=== PATIENT | female | born 1980 | race Caucasian/White ===

== ENCOUNTER 2018-03-24 22:00 | Emergency (ER) | payer MEDICAID, SELFPAY ==
[2018-03-24 22:01] VITALS: BP 147/92; PULSE 87; RESP 15; TEMP 36.9; O2SAT 96; BMI 40.1
[2018-03-24 22:15] VITALS: O2SAT 97
[2018-03-24] MEDS: predniSONE 20 MG Tablet 40 MG PO (22:21)
[2018-03-24 22:23] VITALS: BP 161/99; PULSE 85; O2SAT 96
--- NOTE | 2018-03-24 22:32 | RAD_ITS ---
STUDY: X-RAY CHEST REASON FOR EXAM: Female, 37 years old. Cough and congestion. TECHNIQUE: PA and lateral views of the chest. COMPARISON: None. FINDINGS: The lungs are clear and expanded. There is no demonstrated pleural abnormality. Normal size heart. Normal mediastinum and stewart. Normal visualized pulmonary arteries. Normal visualized aortic arch and descending thoracic aorta. Normal visualized thoracic spine. Normal visualized ribs, clavicles, and shoulders. There is no demonstrated abnormality of the visualized soft tissue structures of the upper abdomen. RAD/Chest PA and Lateral IMPRESSION: No evidence of acute cardiopulmonary process. Electronically Signed: Aman Bhatti DO at 22:42 EDT , Service support ,
--- NOTE | 2018-03-24 22:52 | ED.VISSUMM ---
- ER Visit Summary Date of Service: 03/24/18 Chief Complaint: [Cough] History of Present Illness: The patient is a 37 F [presents the emergency department with a cough that started 1 week ago. Patient states the cough is nonproductive. Patient feels somewhat short of breath. She has had no fever. Patient was seen 2 days ago at [place] emergency department and started on Zithromax, Tessalon, and albuterol inhaler. Patient states that she has a coworker that is been diagnosed with influenza recently. Patient also states that she is lost her voice but denies any sore throat. She does describe a mild headache. She denies any body aches. HEENT-PERRLA, EOMI. Cranial nerves II through XII grossly intact. Physical Examination: [HEENT-PERRLA, EOMI. Cranial nerves II through XII grossly intact. TMs clear. Mucous membranes moist. No adenopathy. Cardiovascular-regular rate and rhythm without murmur or ectopy Lungs-good aeration bilaterally. Respiratory wheezes bilaterally. No significant tachypnea. No accessory muscle use or retractions. Abdomen-normoactive bowel sounds, soft, nontender, no rebound or rigidity, no peritoneal signs. Extremities-intact ?4, normal range of motion, normal pulses, atraumatic] Test Results: [Chest x-ray obtained was normal] Emergency Department Course and Treatment: [Was given a DuoNeb aerosol and started on prednisone.] Treatment Plan: [I suspect patient's illness likely viral she is to continue with her current medications and I will add prednisone. Patient instructed to use her albuterol every 4 hours as needed for wheezing.] Patient advised to quit smoking. Disposition: [Discharged to home in stable condition. Patient advised to return if increased dyspnea or condition should worsen in any way.] Impression: [Asthmatic bronchitis] This note was generated with [employer] dictation software. It may contain incorrect words, spelling, and punctuation that were not noted in review of the chart prior to signing ED Disposition - Plan for ED Patient: Chief Complaint: Cough Referrals: [facility] Doctor,Out of [Primary Care Provider] -
--- NOTE | 2018-03-24 22:55 | ED.DEP ---
ED Disposition - Plan for ED Patient: Chief Complaint: Cough Instructions: ED Bronchitis Asthmatic Prescriptions: Prednisone [Deltasone] 20 mg PO BID #10 tab Referrals: [facility],Out of [Primary Care Provider] - 5-7 Days
[2018-03-24 23:25] VITALS: PULSE 86; RESP 18
[2018-03-24] MEDS: Ipratropium/Albuterol Sulfate 3 ML AMPUL.NEB INHALATION (23:25)
[2018-03-24 23:34] VITALS: PULSE 78; O2SAT 97
== END 2018-03-24 23:36 | disposition home or self-care (01) ==
LOC: ED 22:36
PROVIDERS: Emergency Provider Emergency Medicine
DX: J45.909 Unspecified asthma, uncomplicated (principal); Z72.0 Tobacco use; Z79.2 Long term (current) use of antibiotics; Z79.51 Long term (current) use of inhaled steroids
CPT/HCPCS: 71046; 94640; 99282

== ENCOUNTER 2022-01-02 00:38 | Emergency (ER) | payer MEDICAID, SELFPAY ==
[2022-01-02 00:39] VITALS: BP 189/98; PULSE 82; RESP 18; TEMP 36.6; O2SAT 98; BMI 43.8
--- NOTE | 2022-01-02 00:57 | ED.VIS.DENTA ---
HPI History of Present Illness Chief Complaint: Dental Informant: patient Onset/Context/Timing Onset: Weeks (1) Context: Gradual Onset Timing: Continuous Quality: Sharp, aching Location: Left lower molar Worsened by: Nothing Relieved by: - (Nothing) Associated Symptoms Assocated Symptom - Dental: cold sensitivity and hot sensitivity; Negative for fever, jaw swelling or face swelling Narrative Narrative: Patient presents with left lower dental pain that has been getting worse over the past week. Patient states that she broke a piece off of her left lower molar 1 week ago. Patient states the pain has been tolerable until tonight. Patient describes her pain as sharp and aching. Patient states the pain is over the left lower molar area. Patient states nothing makes it worse and nothing makes it better. Patient does admit to hot and cold sensitivity. Patient denies any fevers or chills. Patient denies any jaw or facial swelling. PFSH PFSH Medical History no medical history Home Medications penicillin V potassium 500 mg PO 4X/DAY #40 tab 01/02/22 [Rx Last Taken Unknown] Allergy/AdvReac Type Severity Reaction Status Date / Time aspirin Allergy Hives Verified 01/02/22 00:41 Social History Smoking Status: Current every day smoker tobacco type: cigarettes ROS ROS ED Constitutional Constitutional ED: Denies chills or fever(s) Eyes Eyes: Denies blurry vision or change in vision ENT ENT ED: Denies rhinorrhea or sore throat Cardiovascular Cardiovascular: Denies chest pain or palpitations Respiratory/Chest Respiratory/Chest: Denies cough or dyspnea Gastrointestinal Gastrointestinal: Denies nausea or vomiting Genitourinary Genitourinary ED: Denies dysuria or hematuria Musculoskeletal Musculoskeletal: Reports neck pain; Denies back pain Integumentary Denies abscess or rash Neurologic Neurologic: Denies headache(s) or weakness Allergic/Immunologic Allergic/Immunologic ED: Denies mouth swelling or urticaria EXAM Physical Exam Const Vital Signs: 01/02/22 00:39 Temperature 97.9 F Temperature Source Temporal Pulse Rate 82 Respiratory Rate 18 Blood Pressure 189/98 H Blood Pressure Mean 128 Pulse Ox 98 Oxygen Delivery Method Room Air Positive well nourished, well developed and obese General Appearance ED: well developed and NAD Nutritional Appearance: obese HEENT HEENT Narrative: There is a dental fracture of the left lower third molar. There is mild gingival edema around this tooth. There is no fluctuance or evidence of any abscess. There is no discharge or drainage. There is no sublingual edema or erythema. There is no evidence of Victorino's angina. Oropharynx is clear. Airway is patent. Mouth ED: Yes lips normal and Yes tongue normal Mouth: lips normal and tongue normal Teeth and Gingiva: caries Throat: posterior oropharynx normal Neck supple and no JVD General: anterior neck swelling and submandibular swelling Neuro oriented x3, CN's II-XII intact bilaterally, moves all extremities, no focal motor deficits and no sensory deficits noted Sensorium / Orientation: alert Psych mental status grossly normal MDM MDM MDM Narrative Medical decision making narrative: Patient was given a dose of Pen-Vee K here. Patient was given a prescription for Pen-Vee K. Patient was instructed to follow-up with her dentist in 3 to 5 days. Patient understood and was agreeable with the plan. All questions were answered. Discharge Plan Triage Chief Complaint: Dental ED Provider: Srinivas Cristobal Dx/Rx/DC Orders Clinical Impression: Dental caries Instructions: ED Dental Pain Prescriptions: New penicillin V potassium 500 MG tablet 500 mg PO 4X/DAY Qty: 40 RF: 0 Primary Care Provider: Mamadou Chaves Referrals: Mamadou Chaves DO [Primary Care Provider] - 3-5 Days Dentist,Your [STAFF PHYSICIAN] - 3-5 Days Disposition Disposition: Home, Self Care
[2022-01-02] MEDS: Penicillin Vk 250 MG Tablet 500 MG PO (01:11)
== END 2022-01-02 01:14 | disposition home or self-care (01) ==
LOC: ED 01:09
PROVIDERS: Emergency Provider Emergency Medicine; PCP Student in an Organized Health Care Education/Training Program; Visit Provider Emergency Medicine
DX: K02.9 Dental caries, unspecified (principal); F17.210 Nicotine dependence, cigarettes, uncomplicated; S02.5XXA Fracture of tooth (traumatic), initial encounter for closed fracture; X58.XXXA Exposure to other specified factors, initial encounter
CPT/HCPCS: 99283

== ENCOUNTER 2022-11-14 18:47 | Emergency (ER) | payer MEDICAID, SELFPAY ==
[2022-11-14 18:48] VITALS: BP 173/98; PULSE 104; RESP 18; TEMP 36.4; O2SAT 99; BMI 41.1
--- NOTE | 2022-11-14 20:04 | EX.ED.DYSGE1 ---
HPI History of Present Illness Chief Complaint: Lower Extremity Injury Narrative Narrative: Patient presents with 1 week of left ankle pain it hurts when she stands up at work she does not know any obvious injury. Since then she has developed some pain in her left quadricep also. This is also nontraumatic. She has no lower extremity edema calf pain or inner thigh pain. No chest pain or shortness of breath. [facility] Medical History (Updated 11/14/22 @ 20:[address] Bakari Nelson MD) Leg pain Home Medications penicillin V potassium 500 mg tablet 500 mg PO 4X/DAY #40 tabs 01/02/22 [Rx Last Taken Unknown] naproxen 500 mg tablet (Naprosyn) 500 mg PO BID #20 tabs 11/14/22 [Rx Last Taken Unknown] Allergy/AdvReac Type Severity Reaction Status Date / Time aspirin Allergy Hives Verified 11/14/22 18:50 Social History Smoking Status: Current every day smoker tobacco type: cigarettes ROS ROS ED ROS Narrative Past medical history: none Medications: Reviewed Social history: Noncontributory Review of systems: Musculoskeletal: As in HPI Skin: No abrasions or lacerations Neurological: No weakness or paresthesias Hematologic: No easy bleeding or easy bruising EXAM Physical Exam Narrative Exam Narrative: Physical exam General: Patient does not appear in significant distress . Head: Normocephalic, Atraumatic Neck: No C-spine tenderness Cardiovascular: Normal distal pulses Back: Nontender, Normal Inspection. Extremities: Patient has slight edema over the lateral malleolus and tenderness. No erythema or calor. Full range of motion. Patient has some tenderness over the quadricep muscle full range of motion. No knee or hip pain. Skin: No abrasions, no lacerations Neurological: Normal strength and sensation Const Vital Signs: 11/14/22 18:48 Temperature 97.6 F L Temperature Source Temporal Pulse Rate 104 H Respiratory Rate 18 Blood Pressure 173/98 H Blood Pressure Mean 123 Pulse Ox 99 Oxygen Delivery Method Room Air [facility] MDM Radiography Diagnostic Testing: Clinical Impression(s) from Imaging Studies Ankle X-Ray 11/14/22 20:10 IMPRESSION: Normal x-ray examination of the ankle. Electronically Signed: Ryan Porras MD at 20:25 EST , Ankle x-ray interpreted by me as negative. Treatment and Re-Evaluation Narrative: X-ray of the ankle is unremarkable, I did consider x-ray of the femur however most of the pain is in the quadricep muscle and not bony tenderness. Patient is reassured I will put her in an Aircast for her ankle pain. She will be discharged in stable condition she can take NSAIDs [id number]. Discharge Plan Triage Chief Complaint: Lower Extremity Injury ED Provider: Bakari Nelson Dx/Rx/DC Orders Clinical Impression: Quadricep tightness, Ankle pain Instructions: Bent-Knee Calf Stretch, ED Ankle Sprain (Adult) Prescriptions: New naproxen [Naprosyn] 500 mg tablet 500 mg PO BID Qty: 20 0RF No Action penicillin V potassium 500 MG tablet 500 mg PO 4X/DAY Qty: 40 0RF Primary Care Provider: Mamadou Chaves Referrals: Mamadou Chaves DO [Primary Care Provider] - 3-5 Days Disposition Disposition: Home, Self Care
--- NOTE | 2022-11-14 20:10 | RAD_ITS ---
STUDY: X-RAY - LEFT ANKLE REASON FOR EXAM: Female, 42 years old. pain TECHNIQUE: 3 view(s) of the ankle. COMPARISON: None. FINDINGS: Normal visualized distal tibia and fibula. Normal medial and lateral malleoli. Normal tibiotalar articulation and ankle mortise. Normal visualized talus and calcaneus. The visualized subtalar, talonavicular, calcaneocuboid and tarsal articulations are normal. The soft tissue structures are unremarkable. RAD/Ankle min 3 Views IMPRESSION: Normal x-ray examination of the ankle. Electronically Signed: Ryan Porras MD at 20:25 EST ,
== END 2022-11-14 20:45 | disposition home or self-care (01) ==
PROVIDERS: Emergency Provider Emergency Medicine; PCP Student in an Organized Health Care Education/Training Program; Visit Provider Emergency Medicine
DX: M25.572 Pain in left ankle and joints of left foot (principal); F17.210 Nicotine dependence, cigarettes, uncomplicated; M62.89 Other specified disorders of muscle
CPT/HCPCS: 73610; 99283

== ENCOUNTER 2022-11-15 20:45 | Emergency (ER) | payer MEDICAID, SELFPAY ==
[2022-11-15 20:46] VITALS: BP 177/110; PULSE 95; RESP 15; TEMP 36.7; O2SAT 97; BMI 41.1
--- NOTE | 2022-11-15 21:25 | US_ITS ---
EXAM: US DUPLEX LEFT LOWER EXTREMITY VEINS CLINICAL INDICATION: undefined -- SWELLING TECHNIQUE: Real-time duplex ultrasound scan of the left lower extremity veins integrating B-mode two-dimensional vascular structure, Doppler spectral analysis, color flow Doppler imaging and compression. This report was created using [employer] report [employer] technology. COMPARISON: None. FINDINGS: DEEP VEINS: Unremarkable. No DVT in the visualized common femoral, femoral, proximal deep femoral or popliteal veins. The veins demonstrate normal color flow, are normally compressible, with normal phasic flow and/or augmentation response. SUPERFICIAL VEINS: Unremarkable. No thrombus in the visualized great saphenous vein. SOFT TISSUES: No acute findings. No popliteal cyst. US/Venous Duplex Imag/Limited/Uni IMPRESSION: Normal left lower extremity duplex venous ultrasound. Electronically Signed: Mike Sauceda MD at 22:54 EST ,
--- NOTE | 2022-11-15 22:38 | ED.VIS.LOWEX ---
HPI History of Present Illness Chief Complaint: Lower Extremity Injury Informant: patient Narrative Narrative: Presents for worsening swelling left leg past week. States noted more swelling in the ankles denies trauma. Denies recent travel or surgeries or immobilizations. No history of PE or DVT. Reported was here yesterday states only had x-rays. Overnight increasing swelling in the calf. No chest pains or shortness of breath. Review of records ankle x-ray on the left was negative. Prior similar symptoms: No PFSH PFSH Medical History Leg pain Home Medications penicillin V potassium 500 mg tablet 500 mg PO 4X/DAY #40 tabs 01/02/22 [Rx Last Taken Unknown] naproxen 500 mg tablet (Naprosyn) 500 mg PO BID #20 tabs 11/14/22 [Rx Last Taken Unknown] Allergy/AdvReac Type Severity Reaction Status Date / Time aspirin Allergy Hives Verified 11/15/22 20:51 Social History Smoking Status: Current every day smoker tobacco type: cigarettes ROS ROS ED Constitutional Constitutional ED: Denies chills, fever(s) or sweats Eyes Eyes: Denies change in vision ENT ENT ED: Denies dysphagia or sore throat Cardiovascular Cardiovascular: Denies chest pain, leg edema, palpitations or racing heartbeat Respiratory/Chest Respiratory/Chest: Denies cough, dyspnea or dyspnea on exertion Gastrointestinal Gastrointestinal: Denies abdominal pain, diarrhea, nausea or vomiting Genitourinary Genitourinary ED: Denies dysuria, hematuria or urinary frequency Musculoskeletal Musculoskeletal: Reports extremity pain and other Details: Left leg swelling ; Denies back pain or neck pain Integumentary Denies rash or wounds Neurologic Neurologic: Denies headache(s), paresthesias or weakness EXAM Physical Exam Const Vital Signs: 11/15/22 20:46 Temperature 98.0 F Temperature Source Temporal Pulse Rate 95 Respiratory Rate 15 Blood Pressure 177/110 H Blood Pressure Mean 132 Pulse Ox 97 Oxygen Delivery Method Room Air Positive well nourished and well developed General Appearance ED: well developed and NAD HEENT Reports moist mucous membranes normocephalic and atraumatic Eyes PERRL, EOMs intact bilaterally and conjunctivae normal General Eye ED: Yes normal appearance of both eyes Neck no lymphadenopathy and supple General: Negative for tenderness Chest Wall Chest: Negative for tenderness Resp normal respiratory effort and normal air movement Effort and Inspection: symmetric chest movement; Negative for respiratory distress Cardio regular rate, regular rhythm and no murmurs Peripheral Pulses: pulses 2+ throughout GI normal to inspection, nondistended, normoactive bowel sounds and non-tender Palpation: Negative for guarding or rebound tenderness present Back/Spine no CVA tenderness and no thoracic nor lumbar tenderness Extremity Extremity Narrative: Lower extremity no medial thigh tenderness. Calf tenderness no Achilles tenderness minimal swelling at the ankles. No midfoot tenderness skin intact neurovascular intact distally. General Extremety ED: Negative for edema or tenderness General Extremity: Negative for edema Neuro oriented x3 and no sensory deficits noted Sensorium / Orientation: awake and alert Skin no rashes or lesions noted and no wounds MDM MDM MDM Narrative Medical decision making narrative: Interventions / MDM: Differential diagnosis: Venous insufficiency, DVT, Diagnosis considered but do not suspect: PE secondary to no clinical symptoms My EKG interpretation: N/A Imaging independently reviewed and interpreted by myself: N/A External documents reviewed: N/A Test considered but not ordered:N/A ED course: Ultrasound left lower extremity obtained discussion with sterile technician negative for DVT. Patient reassured. She will use Tylenol ibuprofen as needed. She will continue to be mobile discussed if symptoms worsen or persist over the past week may need repeat ultrasound. She can follow-up with her PCP for this. All questions were answered. Re-evaluation: stable Disposition discussed with patient/family/significant other: Patient and family Case discussed with consulting clinician: N/A Discharge Plan Triage Chief Complaint: Lower Extremity Injury ED Provider: Otilio Carey Dx/Rx/DC Orders Clinical Impression: Left leg pain, Left leg swelling Instructions: ED Peripheral Edema, Unilateral Prescriptions: No Action penicillin V potassium 500 MG tablet 500 mg PO 4X/DAY Qty: 40 0RF naproxen [Naprosyn] 500 mg tablet 500 mg PO BID Qty: 20 0RF Primary Care Provider: Mamadou Chaves Referrals: Mamadou Chaves DO [Primary Care Provider] - 1 Week if not improving Activity Restrictions/Additional Instructions: DVT study negative your left leg. Monitor symptoms of persist or worsens follow-up with your doctor for reimaging in 1 week. Disposition Disposition: Home, Self Care
== END 2022-11-15 22:56 | disposition home or self-care (01) ==
PROVIDERS: Emergency Provider Emergency Medicine; PCP Student in an Organized Health Care Education/Training Program; Visit Provider Emergency Medicine
DX: M79.89 Other specified soft tissue disorders (principal); F17.210 Nicotine dependence, cigarettes, uncomplicated; M79.605 Pain in left leg
CPT/HCPCS: 93971; 99282